=== PATIENT | male | born 1950 | race African-American/Black ===

== ENCOUNTER 2019-03-28 10:48 | Emergency (ER) | payer OTHER ==
[~2019-03-28] VITALS: Ht 188 cm; Wt 94.1 kg
[2019-03-28 11:07] VITALS: Ht 188 cm; Wt 94.1 kg
[2019-03-28 12:00] VITALS: BP 134/74
== END 2019-03-28 12:00 | disposition home or self-care (01) ==
LOC: ED 10:48
DX: H61.22 Impacted cerumen, left ear (principal); J45.909 Unspecified asthma, uncomplicated; Z98.890 Other specified postprocedural states